=== PATIENT | female | born 1955 | race Caucasian/White ===

== ENCOUNTER 2017-09-09 21:32 | Emergency (ER) | payer MEDICARE ==
[~2017-09-09] VITALS: Ht 154.9 cm; Wt 133.8 kg
[2017-09-09 21:40] VITALS: BP 158/79; PULSE 74; RESP 18; TEMP 97.6; O2SAT 95
--- NOTE | 2017-09-09 22:47 | PD ---
HPI Chief Complaint: Pain: Acute or Chronic Time Seen by Provider: 22:35 Travel History International Travel<30 days: No Contact w/Intl Traveler<30days: No Traveled to known affect area: No History of Present Illness HPI Patient gives a history of generalized weakness, associated along with over the past 2 weeks or so. She is also been experiencing intermittent flank pain, first on the left flank and now most recently a right flank pain that starts in the back and radiates towards the right from right lower quadrant. Describes it as sharp, radiating, 8 out of 10, denies any associated nausea vomiting diarrhea cough runny nose sore throat or headache. Past medical history significant for COPD however patient is not oxygen dependent. Past medical history significant for hypertension, ovarian cyst, D&C , 2, right rotator cuff, . PFSH Past Medical History COPD: Yes Hypertension: Yes Tetanus Vaccination: < 5 Years Influenza Vaccination: Yes ?: Not Menopausal: Yes : 3 Para: 2 Miscarriage: 1 Ovarian Cysts: Yes Dilation and Curettage (D&C): Yes Past Surgical History Section: Yes (X2) Oral Surgery: Yes (WISDOM) Tonsillectomy: Yes Social History Alcohol Use: Yes ("MAYBE ONCE A YEAR") Tobacco Use: No Substance Use: No Allergies-Medications (Allergen,Severity, Reaction): Coded Allergies: Sulfa (Sulfonamide Antibiotics) (Verified Allergy, Intermediate, Itching, 09/09/17) "ITCHY AND FLU-LIKE SYMPTOMS" Review of Systems Except as stated in HPI: all other systems reviewed are Neg General / Constitutional: No: Fever Eyes: No: Visual changes HENT: No: Headaches Cardiovascular: No: Chest Pain or Discomfort Respiratory: No: Shortness of Breath Gastrointestinal: Positive: Abdominal Pain Genitourinary: Positive: Flank Pain (Right flank pain sometimes left flank pain , most currently right flank pain radiating to the right lower quadrant) Musculoskeletal: No: Pain Skin: No Rash Neurologic: No: Weakness Psychiatric: No: Depression Endocrine: No: Polydipsia Hematologic/Lymphatic: No: Easy Bruising Physical Exam Narrative GENERAL: SKIN: Warm and dry. HEAD: Atraumatic. Normocephalic. EYES: Pupils equal and round. No scleral icterus. No injection or drainage. ENT: No nasal bleeding or discharge. Mucous membranes pink and moist. NECK: Trachea midline. No JVD. CARDIOVASCULAR: Regular rate and rhythm. RESPIRATORY: No accessory muscle use. Clear to auscultation. Breath sounds equal bilaterally. GASTROINTESTINAL: Abdomen soft, non-tender, nondistended. MUSCULOSKELETAL: Extremities without clubbing, cyanosis, or edema. No obvious deformities. NEUROLOGICAL: Awake and alert. No obvious cranial nerve deficits. Motor grossly within normal limits. Five out of 5 muscle strength in the arms and legs. Normal speech. PSYCHIATRIC: Appropriate mood and affect; insight and judgment normal. Data Data Last Documented VS Vital Signs Date Time Temp Pulse Resp B/P (MAP) Pulse Ox O2 Delivery O2 Flow Rate FiO2 09/09/17 21:40 97.6 74 18 158/79 (105) 95 Orders Orders Complete Blood Count With Diff (09/09/17 22:44) Comprehensive Metabolic Panel (09/09/17 22:44) Lipase (09/09/17 22:44) Prothrombin Time / Inr (Pt) (09/09/17 22:44) Act Partial Throm Time (Ptt) (09/09/17 22:44) Urinalysis - C+S If Indicated (09/09/17 22:44) Ct Abd/Pel W/O Iv Contrast (09/09/17 22:44) Iv Access Insert/Monitor (09/09/17 22:44) Ecg Monitoring (09/09/17 22:44) Oximetry (09/09/17 22:44) NPO (09/09/17 22:44) Electrocardiogram (09/09/17 22:44) Troponin I (09/09/17 22:44) Labs Laboratory Tests Test 09/09/17 22:45 09/09/17 22:55 Urine Color YELLOW Urine Turbidity CLEAR Urine pH 5.0 Urine Specific [place] GREATER/EQUAL 1.030 Urine Protein NEG mg/dL Urine Glucose (UA) NEG mg/dL Urine Ketones NEG mg/dL Urine Occult Blood NEG Urine Nitrite NEG Urine Bilirubin NEG Urine Urobilinogen 0.2 MG/DL Urine Leukocyte Esterase NEG Urine RBC 0-2 /hpf Urine WBC 0-2 /hpf Urine Squamous Epithelial Cells 0-5 /hpf Urine Bacteria NONE /hpf Microscopic Urinalysis Comment CULT NOT INDICATED White Blood Count 11.7 TH/MM3 Red Blood Count 4.97 MIL/MM3 Hemoglobin 14.0 GM/DL Hematocrit 42.3 % Mean Corpuscular Volume 85.2 FL Mean Corpuscular Hemoglobin 28.2 PG Mean Corpuscular Hemoglobin Concent 33.1 % Red Cell Distribution Width 13.0 % Platelet Count 290 TH/MM3 Mean Platelet Volume 8.0 FL Neutrophils (%) (Auto) 64.5 % Lymphocytes (%) (Auto) 21.2 % Monocytes (%) (Auto) 7.5 % Eosinophils (%) (Auto) 3.6 % Basophils (%) (Auto) 3.2 % Neutrophils # (Auto) 7.5 TH/MM3 Lymphocytes # (Auto) 2.5 TH/MM3 Monocytes # (Auto) 0.9 TH/MM3 Eosinophils # (Auto) 0.4 TH/MM3 Basophils # (Auto) 0.4 TH/MM3 CBC Comment DIFF FINAL Differential Comment Prothrombin Time 10.1 SEC Prothromb Time International Ratio 1.0 RATIO Activated Partial Thromboplast Time 25.8 SEC Blood Urea Nitrogen 14 MG/DL Creatinine 0.71 MG/DL Random Glucose 125 MG/DL Total Protein 7.4 GM/DL Albumin 3.1 GM/DL Calcium Level 8.7 MG/DL Alkaline Phosphatase 115 U/L Aspartate Amino Transf (AST/SGOT) 45 U/L Alanine Aminotransferase (ALT/SGPT) 58 U/L Total Bilirubin 0.2 MG/DL Sodium Level 141 MEQ/L Potassium Level 3.6 MEQ/L Chloride Level 108 MEQ/L Carbon Dioxide Level 27.4 MEQ/L Anion Gap 6 MEQ/L Estimat Glomerular Filtration Rate 83 ML/MIN Troponin I LESS THAN 0.02 NG/ML Lipase 249 U/L MDM Medical Decision Making Medical Screen Exam Complete: Yes Emergency Medical Condition: Yes Medical Record Reviewed: Yes Interpretation(s) EKG shows normal sinus rhythm, 73 bpm, PACs, mild motion artifact however no evidence of any ST elevation FL pattern. Excellent Pleth wave, room air readings between 85 and 100 consistent with normal and does not show any evidence of hypoxemia Differential Diagnosis Dehydration versus anemia versus pancreatitis versus kidney infection versus kidney stone versus appendicitis versus colitis versus diverticulitis Narrative Course CBC shows slight leukocytosis which is reactive, as there is no left shift. No anemia normal platelet count Coagulation profile is within normal limits Electrolytes are all within normal limits, normal kidney and normal pancreatic enzymes. AST and ALT is slightly elevated at 45 and 58 respectively, but with normal bilirubin and normal phosphorus First set of cardiac enzymes negative UA is not consistent with a UTI CT abdomen pelvis performed and read by radiologist shows no evidence of any intraperitoneal air or fluid, no evidence of any aneurysm, no evidence of any hydronephrosis, CT also shows evidence of minimal right basilar density without any renal calculi or hydronephrosis. Of note the patient only had findings her lungs based on a CAT scan, this is most consistent with atypical pneumonia, patient will be discharged with a p.o. trial of antibiotics, of note the patient was able to ambulate about tolerate p.o. and did not desaturate during her post ambulation. Diagnosis Primary Impression: Generalized weakness Additional Impression: Right basilar infiltrate Patient Instructions: Community Acquired Pneumonia (DC), General Instructions Scripts Guaifenesin-Codeine Liq (Guaifenesin AC Liq) 100-10 Mg/5 Ml Syrp 10 ML PO Q6H Y for COUGH, #180 BOTTLE 0 Refills Prov: Chase Miranda MD 09/09/17 Albuterol 6.7 GM Inh (Proventil Hfa 6.7 GM Inh) 90 Mcg/Act Aer 2 PUFF INH Q4-6H Y for SHORTNESS OF BREATH, #1 INHALER 0 Refills Prov: Chase Miranda MD 09/09/17 Ciprofloxacin (Cipro) 500 Mg Tab 500 MG PO BID for Infection for 10 Days, #20 TAB 0 Refills Prov: Chase Miranda MD 09/09/17 Disposition: 01 DISCHARGE HOME Condition: Stable Chase Miranda MD September 09, 2017 22:47
[2017-09-09 22:54] LABS: BILIRUBIN, URINE NEG (NEG); BLOOD, URINE NEG (NEG); GLUCOSE,URINE NEG (NEG); KETONE, URINE NEG (NEG); NITRITE,URINE NEG (NEG); URINE COLOR YELLOW (YELLW/STRAW); URINE LEUKOCYTE ESTERASE NEG (NEG)
[2017-09-09 23:00] LABS: RBC, URINE 0-2 /hpf (0-3); SQUAMOUS EPITHELIAL CELL URINE 0-5 /hpf (0-5); WBC, URINE 0-2 /hpf (0-5)
[2017-09-09 23:13] LABS: AUTOMATED NEUTROPHIL # 7.5 TH/MM3 (1.8-7.7); BASOPHIL # 0.4 TH/MM3 (0-0.2); BASOPHIL % 3.2 % (0.0-2.0); EOSINOPHIL # 0.4 TH/MM3 (0-0.4); EOSINOPHIL % 3.6 % (0.0-4.0); HEMATOCRIT 42.3 % (35.0-46.0); LYMPH % 21.2 % (9.0-44.0); LYMPHOCYTE # 2.5 TH/MM3 (1.0-4.8); MEAN CELL VOLUME 85.2 FL (80.0-100.0); MEAN CORPUSCULAR HEMOGLOBIN 28.2 PG (27.0-34.0); MEAN CORPUSCULAR HGB CONC 33.1 % (32.0-36.0); MONO % 7.5 % (0.0-8.0); MONOCYTE # 0.9 TH/MM3 (0-0.9); NEUT % 64.5 % (16.0-70.0); PLATELET COUNT 290 TH/MM3 (150-450); RED BLOOD COUNT 4.97 MIL/MM3 (4.00-5.30); WHITE BLOOD COUNT 11.7 TH/MM3 (4.0-11.0)
[2017-09-09 23:23] LABS: CHLORIDE 108 MEQ/L (98-107); SODIUM (NA) 141 MEQ/L (136-145)
[2017-09-09 23:26] LABS: CALCIUM 8.7 MG/DL (8.5-10.1)
[2017-09-09 23:27] LABS: ALBUMIN 3.1 GM/DL (3.4-5.0); BICARBONATE 27.4 MEQ/L (21.0-32.0); BLOOD UREA NITROGEN 14 MG/DL (7-18); GLUCOSE,RANDOM 125 MG/DL (74-106)
[2017-09-09 23:28] LABS: PROTHROMBIN TIME - PATIENT 10.1 SEC (9.8-11.6)
[2017-09-09 23:30] LABS: ALT (GPT) 58 U/L (10-53); AST (GOT) 45 U/L (15-37); CREATININE 0.71 MG/DL (0.50-1.00); GLOMERULAR FILTRATION RATE 83 ML/MIN (>89)
[2017-09-09 23:31] LABS: TOTAL BILIRUBIN ADULT 0.2 MG/DL (0.2-1.0); TOTAL PROTEIN 7.4 GM/DL (6.4-8.2)
[2017-09-09 23:33] LABS: ALKALINE PHOSPHATASE 115 U/L (45-117)
[2017-09-09 23:35] LABS: TROPONIN I LESS THAN 0.02 NG/ML (0.02-0.05)
--- NOTE | 2017-09-09 23:35 | RADRPT ---
EXAM DATE/TIME: 09/09/2017 23:08 [facility] COMPARISON: No previous studies available for comparison. INDICATIONS : Bilateral flank pain. ORAL CONTRAST: No oral contrast ingested. RADIATION DOSE: 26.75 CTDIvol (mGy) ; Patient body habitus MEDICAL HISTORY : None SURGICAL HISTORY : section. shoulder surgery ENCOUNTER: Initial ACUITY: 1 day PAIN SCALE: 7/10 LOCATION: Bilateral flank abdomen TECHNIQUE: Volumetric scanning of the abdomen and pelvis was performed. Using automated exposure control and ad justment of the mA and/or kV according to patient size, radiation dose was kept as low as reasonably achievable to obtain optimal diagnostic quality images. DICOM format image data is available electro nically for review and comparison. FINDINGS: LOWER LUNGS: Minimal right basilar density. LIVER: Homogeneous density without lesion. There is no dilation of the biliary tree. No calcified gallston es. SPLEEN: Normal size without lesion. PANCREAS: Within normal limits. KIDNEYS: Normal in size and shape. There is no mass, stone, or hydronephrosis. ADRENAL GLANDS: Within normal limits. VASCULAR: There is no aortic aneurysm. BOWEL/MESENTERY: The stomach, small bowel, and colon demonstrate no acute abnormality. There is no free intraperitone al air or fluid. ABDOMINAL WALL: Within normal limits. RETROPERITONEUM: There is no lymphadenopathy. BLADDER: No wall thickening or mass. REPRODUCTIVE: Within normal limits. INGUINAL: There is no lymphadenopathy or hernia. MUSCULOSKELETAL: Within normal limits for patient age. CONCLUSION: 1. Minimal right basilar density. 2. No renal calculi or hydronephrosis. Jose Antonio Lester MD on September 09, 2017 at 23:31 Board Certified Radiologist. This report was verified electronically.
[2017-09-09] MEDS ORDERED: CIPR-9 PO (23:49)
[2017-09-09] MEDS ORDERED: GUAISYP4 PO (23:49)
[2017-09-09] MEDS ORDERED: ALBU6.7H INH (23:49)
[2017-09-10] MEDS ORDERED: LEVOFLOXACIN 750 MG TAB PO ONE
[2017-09-10] MEDS ORDERED: DIFL150T PO (00:04)
[2017-09-10] MEDS ORDERED: BENA40TA PO (00:28)
[2017-09-10] MEDS ORDERED: THEO1CAP2 PO (00:28)
[2017-09-10] MEDS ORDERED: FURO1TAB60 PO (00:28)
[2017-09-10] MEDS ORDERED: AMLO5TAB2 PO (00:28)
[2017-09-10] MEDS ORDERED: TOPI50TA7 PO (00:28)
[2017-09-10] MEDS ORDERED: DOXA1TAB34 PO (00:28)
[2017-09-10] MEDS ORDERED: CLAR10CA3 PO (00:28)
[2017-09-10] MEDS ORDERED: FLUT1INH INH (00:29)
[2017-09-10 00:37] VITALS: BP 158/60
--- NOTE | 2017-09-11 08:31 | EKG ---
Date Performed: 09/09/2017 Time Performed: 22:53:03 PTAGE: 62 years EKG: Sinus rhythm WITH OCCASIONAL SUPRAVENTRICULAR PREMATURE COMPLEXES NONSPECIFIC T-WAVE ABNORMALITY BORDERLINE ECG NO PREVIOUS TRACING DOCTOR: Rylie Jeong Interpretating Date/Time 09/11/2017 08:29:04
== END 2017-09-10 00:39 | disposition home or self-care (01) ==
LOC: PHED 21:32
DX: R53.1 Weakness (principal); D72.829 Elevated white blood cell count, unspecified; R94.31 Abnormal electrocardiogram [ECG] [EKG]; J44.9 Chronic obstructive pulmonary disease, unspecified; I10 Essential (primary) hypertension; Z88.2 Allergy status to sulfonamides
CPT/HCPCS: 74176; 80053; 81001; 83690; 84484; 85025; 85610; 85730; 93005; 99285